=== PATIENT | female | born 1955 | race Two or more races ===

== ENCOUNTER 2021-10-02 15:42 | Emergency (ER) | payer MEDICARE, OTHER ==
[~2021-10-02] VITALS: Ht 170.2 cm; Wt 54.4 kg
[2021-10-02 15:47] VITALS: BP 139/83
[2021-10-02] MEDS ORDERED: AZITHROMYCIN 250 MG TAB PO ONE (16:45)
[2021-10-02] MEDS ORDERED: methylPREDNISolone SOD SUCC 125 MG/2 ML VL IM ONE (16:45)
== END 2021-10-02 22:52 | disposition left against medical advice (07) ==
LOC: ER 15:42
DX: B33.8 Other specified viral diseases (principal); J40 Bronchitis, not specified as acute or chronic; Z53.29 Procedure and treatment not carried out because of patient's decision for other reasons
CPT/HCPCS: 71046; 80053; 81001; 84484